=== PATIENT | male | born 1990 | race African-American/Black ===

== ENCOUNTER 2021-02-04 12:12 | Emergency (ER) | payer SELFPAY ==
[~2021-02-04] VITALS: Ht 160 cm; Wt 85.0 kg
[2021-02-04] MEDS ORDERED: HYDROCODONE/ACETAMINOPHEN 5/325MG TABLET PO ONE (13:15)
[2021-02-04 13:23] VITALS: BP 129/84
[2021-02-04 14:05] LABS: CLARITY URINE CLEAR (CLEAR); COLOR URINE YELLOW (YELLOW); KETONES URINE NEGATIVE (NEGATIVE); LEUKOCYTE ESTERASE URINE NEGATIVE (NEGATIVE); NITRITE URINE NEGATIVE (NEGATIVE); OCCULT BLOOD URINE NEGATIVE (NEGATIVE); PH URINE 7.5 (4.5-8.0); PROTEIN URINE NEGATIVE (NEGATIVE); SPECIFIC GRAVITY URINE 1.015 (1.005-1.030)
== END 2021-02-04 16:35 | disposition home or self-care (01) ==
LOC: ER 12:12
DX: N50.812 Left testicular pain (principal); N50.811 Right testicular pain
CPT/HCPCS: 76870; 81003; 93976; 99284